=== PATIENT | female | born 1970 | race American Indian/Alaskan Native ===

== ENCOUNTER 2018-08-13 11:48 | Emergency (ER) | payer BC ==
[2018-08-13 12:14] VITALS: BMI 21.6
[2018-08-13 12:18] VITALS: RESP 18
--- NOTE | 2018-08-13 12:21 | ED PDOC ---
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 She states throughout the week she has had bloody urine but she "gets that all the time from my glomeruloneprhitis" but "it was a little more than usual this week." She also states that 6 days ago she had episodes of vomiting and diarrhea "all day on Wednesday" which she states has since resolved. She denies any headaches or back pain, denies nausea or vomiting, denies cough or chest pain or shortness of breath, denies leg pain or swelling, denies rash. Denies vaginal bleeding or discharge. <Yennifer Cuevas - Last Filed: 08/14/18 12:15> - General Chief Complaint: Female Genitourinary Past Medical History - Infectious Disease Hx of Infectious Diseases: None - Cardiac Hx Hypertension: Yes - Renal Other/Comment: glomerular nephritis - Hematological/Oncological Hx Anemia: Yes - Psychiatric Hx Substance Use: No - Anesthesia Hx Anesthesia: No <Grady Ladd - Last Filed: 08/13/18 12:21> Family/Social History Smoking Status: Light Smoker < 10 Cigarettes Daily Hx Alcohol Use: Yes Frequency of alcohol use: Socially Hx Substance Use: No <Grady Ladd - Last Filed: 08/13/18 12:21> Family/Social History: Other (glomerulonephritis) <Yennifer Cuevas - Last Filed: 08/14/18 12:15> Allergies/Home Meds <Grady Ladd - Last Filed: 08/13/18 12:21> <Yennifer Cuevas - Last Filed: 08/14/18 12:15> Allergies/Adverse Reactions: Allergies No Known Allergies Allergy (Verified 08/13/18 12:13) Home Medications: Home Meds Medication Instructions Recorded Confirmed RX: Olmesartan Medoxomil [Benicar] 1 tab PO DAILY 08/13/18 08/13/18 Review of Systems - Review of Systems Constitutional: Fatigue. absent: Fevers Eyes: absent: Vision Changes, Eye Pain ENT: absent: Hearing Changes Respiratory: absent: SOB, Cough Cardiovascular: absent: Chest Pain, Edema, STEEN Gastrointestinal: absent: Abdominal Pain, Nausea, Vomiting Genitourinary Female: Dysuria, Frequency, Hematuria. absent: Vaginal Bleeding, Vaginal Discharge Musculoskeletal: absent: Back Pain, Neck Pain Skin: absent: Rash Neurological: absent: Headache, Dizziness, Focal Weakness Hemo/Lymphatic: absent: Easy Bleeding Psychiatric: absent: Depression <FaithYennifer - Last Filed: 08/14/18 12:15> Physical Exam Vital Signs Temp Pulse Resp BP Pulse Ox 08/13/18 12:17 98.6 F 68 18 146/84 99 <Grady Ladd - Last Filed: 08/13/18 12:21> Vital Signs Reviewed: Yes Vital Signs Temp Pulse Resp BP Pulse Ox 08/13/18 12:17 98.6 F 68 18 146/84 99 Temperature: Afebrile Appearance: Positive for: Well-Appearing, Non-Toxic Pain Distress: Mild Mental Status: Positive for: Alert and Oriented X 3 - Systems Exam Head: Present: Atraumatic Pupils: Present: PERRL Extroacular Muscles: Present: EOMI Conjunctiva: No: Injected Mouth: Present: Moist Mucous Membranes Pharnyx: No: ERYTHEMA Nose (Internal): Present: Normal Inspection Neck: Present: Normal Range of Motion. No: Meningeal Signs Respiratory/Chest: Present: Clear to Auscultation. No: Respiratory Distress Cardiovascular: Present: Regular Rate and Rhythm Abdomen: Present: Other (very mild suprapubic pain) Rectal: No: Gross Blood Back: No: CVA Tenderness Upper Extremity: No: Cyanosis Lower Extremity: No: Edema Neurological: Present: Motor Func Grossly Intact, Normal Sensory Function Skin: Present: Warm Psychiatric: Present: Alert <FaithYennifer - Last Filed: 08/14/18 12:15> Medical Decision Making ED Course and Treatment: 08/13/18 13:05 Patient with prior history of glomerulnephritis presents with hematuria, dysuria, frequency. Currently afebrile, no back pain, nontoxic appearing. Minimal lower suprapubic discomfort. No leg pain or swelling. She took Azol for dysuria this morning. Currently eating well with no vomiting or diarrhea. Due to history of glomerulonephritis, labs obtained. I reviewed patients BUN/Cr, as well as cbc with patient. She is not hypotensive or tachycardic in ED on re-eval. No flank pain. Tolerating po. I have discussed antibiotic treatment for her as well as need for follow-up of urine cultures. Have advised close follow-up with her PMD given her prior past medical history. She expresses understanding of treatment plan. No headaches, no acute edema, no chest pain or shortness of breath noted or reported. - Lab Interpretations Lab Results: Urine Color Page (YELLOW) 08/13/18 12:30 Urine Appearance Sl cloudy (CLEAR) 08/13/18 12:30 Urine pH 5.5 (4.7-8.0) 08/13/18 12:30 Ur Specific [place] 1.025 (1.005-1.035) 08/13/18 12:30 Urine Protein >=300 mg/dL (<30 mg/dL) H 08/13/18 12:30 Urine Glucose (UA) 100 mg/dL (NEGATIVE) H 08/13/18 12:30 Urine Ketones Trace mg/dL (NEGATIVE) H 08/13/18 12:30 Urine Blood Large (NEGATIVE) H 08/13/18 12:30 Urine Nitrate Positive (NEGATIVE) H 08/13/18 12:30 Urine Bilirubin Small (NEGATIVE) H 08/13/18 12:30 Urine Urobilinogen 4.0 E.U./dL (<1 E.U./dL) H 08/13/18 12:30 Ur Leukocyte Esterase Moderate [place]/uL (NEGATIVE) H 08/13/18 12:30 Urine RBC 10 - 15 /hpf (0-2) H 08/13/18 12:30 Urine WBC 15 - 20 /hpf (0-6) H 08/13/18 12:30 Ur Epithelial Cells 0 - 2 /hpf (0-5) 08/13/18 12:30 Urine Bacteria Large /hpf (NONE) 08/13/18 12:30 <Yennifer Cuevas - Last Filed: 08/14/18 12:15> Disposition/Present on Arrival - Present on Arrival History of DVT/PE: No History of Uncontrolled Diabetes: No Urinary Catheter: No History of Decub. Ulcer: No History Surgical Site Infection Following: None <Grady Ladd - Last Filed: 08/13/18 12:21> - Present on Arrival Any Indicators Present on Arrival: No - Disposition Have Diagnosis and Disposition been Completed?: Yes Disposition Time: 14:00 Patient Plan: Discharge <Yennifer Cuevas - Last Filed: 08/14/18 12:15> - Disposition Diagnosis: Urinary tract infection Disposition: HOME/ ROUTINE Condition: GOOD Discharge Instructions (ExitCare): Urinary Tract Infection, Adult (DC) Additional Instructions: Take antibiotics as directed. Due to your history of glomerulonephritis, you must follow-up closely on antibiotics. If you develop ANY back pain, any increase in abdominal pain, any nausea or vomiting, any fevers or chills, any leg pain or swelling, any dizziness or sweats, any persistent or worsening of any symptoms, get rechecked immediately. Follow-up with your physician in 1-2 days. Prescriptions: RX: Cefpodoxime [Vantin] 200 mg PO BID #20 tab Referrals: Miguel Becerra MD, PhD [Primary Care Provider] - Follow up with primary Forms: [employer] ([place]ic)
[2018-08-13 12:34] LABS: PH,URINE 5.5 (4.7-8.0); URINE BILIRUBIN SMALL (NEGATIVE); URINE BLOOD LARGE (NEGATIVE); URINE GLUCOSE (UA) 100 mg/dL (NEGATIVE); URINE LEUKOCYTE ESTERASE MODERATE Leu/uL (NEGATIVE); URINE PROTEIN >=300 mg/dL (<30 mg/dL)
[2018-08-13 12:36] LABS: URINE APPEARANCE SL CLOUDY (CLEAR); URINE COLOR ORANGE (YELLOW)
[2018-08-13 12:52] LABS: URINE BACTERIA LARGE /hpf; URINE EPITHELIAL CELLS 0 - 2 /hpf (0-5); URINE WBC 15 - 20 /hpf (0-6)
[2018-08-13 13:20] LABS: BASO # 0.02 K/mm3 (0.0-2.0); BASO % 0.2 % (0.0-3.0); EOS # 0.1 (0.0-0.7); EOS % 0.7 % (1.5-5.0); HEMOGLOBIN 11.3 g/dL (12.0-16.0); LYMPH % 17.5 % (22.0-35.0); MEAN CELL VOLUME 95.2 fl (80.0-105.0); MEAN CORPUSCULAR HEMOGLOBIN 31.9 pg (25.0-35.0); MEAN CORPUSCULAR HGB CONC 33.5 g/dl (31.0-37.0); MEAN PLATELET VOLUME 9.2 fl (7.0-11.0); MONO # 0.8 (0.1-0.6); MONO % 6.8 % (1.0-6.0); RBC 3.54 10^6/uL (3.5-6.1); RED CELL DISTRIBUTION WIDTH 12.8 % (11.5-14.5); WHITE BLOOD COUNT 11.5 10^3/uL (4.5-11.0)
[2018-08-13 13:32] LABS: ALB/GLOB RATIO 1.3 (1.1-1.8); ALBUMIN 3.7 g/dL (3.0-4.8); ALT/SGPT 19 U/L (7-56); AST/SGOT 24 U/L (14-36); BLOOD UREA NITROGEN 15 mg/dL (7-21); CALCIUM 8.9 mg/dL (8.4-10.5); GFR NON-AFRICAN AMERICAN > 60
[2018-08-13 14:09] VITALS: BP 140/89; PULSE 78; TEMP 98.5; O2SAT 98
== END 2018-08-13 14:12 | disposition home or self-care (01) ==
LOC: ED 11:48
DX: N39.0 Urinary tract infection, site not specified (principal); I10 Essential (primary) hypertension; F17.210 Nicotine dependence, cigarettes, uncomplicated